=== PATIENT | female | born 1985 | race Two or more races ===

== ENCOUNTER 2021-04-15 09:05 | Emergency (ER) | payer SELFPAY ==
[~2021-04-15] VITALS: Ht 167.6 cm; Wt 94.3 kg
[2021-04-15 09:46] VITALS: BP 160/118
== END 2021-04-15 11:18 | disposition home or self-care (01) ==
LOC: ER 09:05
DX: S00.03XA Contusion of scalp, initial encounter (principal); S96.911A Strain of unspecified muscle and tendon at ankle and foot level, right foot, initial encounter; S80.02XA Contusion of left knee, initial encounter; M62.838 Other muscle spasm; Z88.1 Allergy status to other antibiotic agents; V59.40XA Driver of pick-up truck or van injured in collision with unspecified motor vehicles in traffic accident, initial encounter; Y93.89 Activity, other specified; Y92.410 Unspecified street and highway as the place of occurrence of the external cause; Y99.8 Other external cause status
CPT/HCPCS: 70450; 71045; 72100; 72125; 73560; 73610